=== PATIENT | female | born 1950 | race Caucasian/White ===

== ENCOUNTER → 2016-10-28 | Outpatient (CLI) | payer MEDICARE, OTHER ==
--- NOTE | 2016-10-28 17:32 | REPMRS ---
Patient History The patient states she has not had a clinical breast exam in over a year. Patient is postmenopausal. No known family history of cancer. Patient has lost 50 pounds since last mammo. Digital Mammo Screening Bilat: October 28, 2016 - Exam #: [id number] Bilateral CC and MLO view(s) were taken. Technologist: Kathy Heath Technologist Prior study comparison: July 09, 2015, bilateral digital mammo screening bilat performed at [facility]. April 21, 2014, bilateral digital mammo screening bilat performed at [facility]. April 01, 2013, bilateral digital mammo screening bilat performed at [facility]. FINDINGS: There are scattered fibroglandular densities. There has been no change in the appearance of the mammogram from the prior studies. There is a mild amount of scattered fibroglandular density which is fairly symmetric. There is no interval development of dominant mass, architectural distortion, or clustered microcalcification suggestive of malignancy. ASSESSMENT: BI-RADS/ACR category 1 mammogram. Negative. Recommendation Routine screening mammogram in 1 year (for women over age 40). This mammogram was interpreted with the aid of an FDA-approved computer-aided dectection system. Electronically Signed By: Santos Gonzalez MD 10/28/16 [id number]
== END ==
LOC: M RAD 12:09
PROVIDERS: ATTEND Physician Assistant Medical
DX: Z12.31 Encounter for screening mammogram for malignant neoplasm of breast (principal)

== ENCOUNTER 2016-11-09 14:02 | Emergency (ER) | payer MEDICARE, OTHER ==
[~2016-11-09] VITALS: Ht 157.5 cm; Wt 85.3 kg
[2016-11-09] MEDS ORDERED: ELIQ5TAB PO (14:14)
[2016-11-09] MEDS ORDERED: VITATAB11 PO (14:14)
[2016-11-09] MEDS ORDERED: AMLO2.5T PO (14:14)
[2016-11-09] MEDS ORDERED: LIPI20TA PO (14:14)
[2016-11-09] MEDS ORDERED: MICA40TA PO (14:14)
[2016-11-09] MEDS ORDERED: CALC500T49 PO (14:14)
[2016-11-09] MEDS ORDERED: CHLO125TA PO (14:14)
[2016-11-09] MEDS ORDERED: BIOT2500 PO (14:14)
[2016-11-09] MEDS ORDERED: FISH1000 PO (14:14)
--- NOTE | 2016-11-09 15:29 | REP ---
Duplex extremity venous ultrasound: Right lower extremity. History: Knee pain and extends up the hamstrings and down the posterior calf. Findings: The deep veins are anechoic and fully compressible from the groin to the popliteal fossa in the right lower extremity. Color flow imaging is homogeneous. Spectral Doppler interrogation demonstrates intact respiratory variation in flow and normal manual augmentation of flow. There is no evidence of deep vein thrombosis. Incidental note is made of a complex bilobed Salas's cyst. These cystic compartments in the posterior popliteal fossa measures follows: 3.4 x 2.5 x 1 points 1 cm and 2.4 x 1.3 x 1.2 cm. Impression: Negative right lower extremity duplex venous ultrasound. No evidence of deep vein thrombosis. Salas's cyst. Signed by Kin Gonzalez MD 11/09/2016 03:21 P
[2016-11-09] MEDS ORDERED: ACET-645 PO (15:44)
[2016-11-09 15:58] VITALS: BP 136/67
== END 2016-11-09 15:57 | disposition home or self-care (01) ==
LOC: M ED 14:43
DX: M71.21 Synovial cyst of popliteal space [Baker], right knee (principal)

== ENCOUNTER 2017-03-28 16:02 | Emergency (ER) | payer MEDICARE, OTHER ==
[~2017-03-28] VITALS: Ht 157.5 cm; Wt 86.3 kg
[~2017-03-28 16:02] MED LIST: ACET-645 PO; AMLO2.5T PO; BIOT2500 PO; CALC500T49 PO; CHLO125TA PO; ELIQ5TAB PO; FISH1000 PO; LIPI20TA PO; MICA40TA PO; VITATAB11 PO
[2017-03-28] MEDS ORDERED: traMADol 50 MG TAB PO ONE (18:45)
--- NOTE | 2017-03-28 19:44 | REP ---
Clinical: Pain. Technique: AP, lateral, bilateral oblique and sunrise views of the right knee. Findings: Early advanced tricompartmental osteoarthritic degenerative changes are appreciated. Suprapatellar effusion identified. Prepatellar swelling. Impression: Swelling with effusion and advanced tricompartmental degenerative changes. No obvious acute fracture dislocation. If necessary consider CT of the knee for evaluation of subtle fracture. Signed by Kory Carter MD 03/28/2017 07:43 P
[2017-03-28] MEDS ORDERED: NORCOTAB PO (19:51)
[2017-03-28] MEDS ORDERED: NORCO 5/325MG TABLET (BULK FOR ED) PO ONE (20:00)
[2017-03-28 20:04] VITALS: BP 143/91
[2017-05-24] MEDS ORDERED: LIDO5TD TOP (12:00)
[2017-05-24] MEDS ORDERED: OYST500T17 PO (12:00)
[2017-05-24] MEDS ORDERED: DICL1GEL3 TOP (12:00)
[2017-05-24] MEDS ORDERED: CHLO25TA PO (12:00)
[2017-05-24] MEDS ORDERED: VITA1CAP40 PO (12:00)
[2017-05-24] MEDS ORDERED: ATOR40TA75 PO (12:00)
[2017-05-29] MEDS ORDERED: ATEN25TA PO (10:32)
== END 2017-03-28 20:09 | disposition home or self-care (01) ==
LOC: M ED 16:02
DX: M17.11 Unilateral primary osteoarthritis, right knee (principal)

== ENCOUNTER 2017-04-04 23:03 | Emergency (ER) | payer MEDICARE, OTHER ==
[~2017-04-04] VITALS: Ht 157.5 cm; Wt 83.6 kg
[~2017-04-04 23:03] MED LIST changes: +NORCOTAB PO
[2017-04-04 23:37] LABS: BASO % 0.4 % (0.0-1.0); EOS # 0.2 K/mm3 (0.0-0.50); EOS % 2.6 % (0.0-3.0); LARGE UNSTAINED CELL # 0.2 K/mm3 (0.0-0.4); LARGE UNSTAINED CELL % 2.5 % (0.0-4.0); LYMPH # 1.6 K/mm3 (1.5-4.5); LYMPH % 16.7 % (24.0-44.0); MEAN CORPUSCULAR HEMOGLOBIN 31.4 pg (27.0-33.0); MEAN CORPUSCULAR HGB CONC 36.5 g/dl (32.0-36.5); MEAN CORPUSCULAR VOLUME 86.3 fl (80.0-96.0); MONO # 0.7 K/mm3 (0.0-0.8); MONO % 7.1 % (0.0-5.0); NEUTROPHILS # 6.7 K/mm3 (1.8-7.7); NEUTROPHILS % 70.6 % (36.0-66.0); PLATELET COUNT, AUTOMATED 285 k/mm3 (150-450); WHITE BLOOD COUNT 9.4 K/mm3 (4.0-10.0)
[2017-04-04 23:44] LABS: INR 1.46
[2017-04-04] MEDS ORDERED: ASPIRIN 81 MG CHEW TABLET PO ONE (23:45)
[2017-04-05 00:09] LABS: ALBUMIN 3.4 GM/DL (3.2-5.2); ALBUMIN/GLOBULIN RATIO 0.83 (1.00-1.93); ALKALINE PHOSPHATASE 117 U/L (45-117); ALT/SGPT 30 U/L (12-78); ANION GAP 6 MEQ/L (8-16); AST/SGOT 29 U/L (15-37); BILIRUBIN,DIRECT 0.3 MG/DL (0.0-0.2); BILIRUBIN,TOTAL 1.1 MG/DL (0.2-1.0); BLOOD UREA NITROGEN 20 MG/DL (7-18); CALCIUM LEVEL 9.7 MG/DL (8.8-10.2); CARBON DIOXIDE LEVEL 32 MEQ/L (21-32); CHLORIDE LEVEL 92 MEQ/L (98-107); CREATININE FOR GFR 1.09 MG/DL (0.55-1.02); GLOMERULAR FILTRATION RATE 53.3 (>45); GLUCOSE, FASTING 100 MG/DL (80-110); POTASSIUM SERUM 4.4 MEQ/L (3.5-5.1); SODIUM LEVEL 130 MEQ/L (136-145); TOTAL PROTEIN 7.5 GM/DL (6.4-8.2)
[2017-04-05] MEDS ORDERED: ISOVUE-370 76% 100ML VIAL (Q9967) As Ordered ONE (00:29)
[2017-04-05] MEDS ORDERED: NS 500 ML IV ONE (00:30)
[2017-04-05] MEDS ORDERED: GI COCKTAIL 50ML BTL(HYOSCYAMINE/MAALOX/LIDOCAINE VISCOUS)(1:3:1) PO ONE (00:30)
--- NOTE | 2017-04-05 01:00 | REPUSA ---
CLINICAL HISTORY: Chest pain, exclude PE. TECHNIQUE: Multiple incremental axial, coronal and oblique images are obtained from the thoracic inle t to the upper abdomen. Intravenous contrast material was administered as per pulmonary embolism prot ocol. COMMENTS: Bilateral basilar atelectatic pulmonary changes. There is excellent opacification of pulmonary arterial system without evidence for pulmonary embolism . Aorta is of normal caliber without evidence for dissection or aneurysm. There is no evidence of pleural or parenchymal mass. There are no pleural effusions. There is no evid ence of hilar or mediastinal lymphadenopathy. The heart and great vessels are within normal limits. Images of the upper abdomen demonstrate no evidence of adrenal mass. The bony structures are free of lytic or blastic lesions. IMPRESSION: No evidence for pulmonary embolism. Bilateral basilar atelectatic pulmonary changes. Thank you for your kind referral of this patient.
[2017-04-05 06:23] VITALS: BP 139/67
--- NOTE | 2017-04-05 07:38 | REP ---
Clinical: Chest pain . Comparison: None . Technique: PA and lateral. Findings: The mediastinum and cardiac silhouette are normal. The lung hoyt are clear and without acute consolidation, effusion, or pneumothorax. The skeletal structures are intact and normal. Impression: 1. No acute cardiopulmonary process. Signed by Kory Carter MD 04/05/2017 07:29 A
--- NOTE | 2017-04-06 07:14 | ECGEPIP ---
Stationary ECG Study [facility] - ED Test Date: 2017-04-04 Pat Name: DEEPAK QIU Department: Room: - Gender: F Beverage Steward: wagner : 1950 Requested By: SABAS Callahan Order Number: [id number] Reading MD: Valarie Dominguez Measurements Intervals [place] Rate: 77 P: WI: 0 QRS: 81 QRSD: 84 T: 61 QT: 397 QTc: 450 Interpretive Statements ATRIAL FIBRILLATION ABNORMAL RHYTHM ECG LOW VOLTAGE LIMB NSTTW ABNORMALITY NO PRIOR FOR COMPARISON Electronically Signed On 04-06-2017 7:13:40 EDT by Valarie Dominguez
--- NOTE | 2017-04-06 07:38 | ECGEPIP ---
Stationary ECG Study [facility] - ED Test Date: 2017-04-05 Pat Name: DEEPAK QIU Department: Room: - Gender: F Photographic Technician: : 1950 Requested By: SABAS Callahan Order Number: [id number] Reading MD: Valarie Dominguez Measurements Intervals [place] Rate: 70 P: [place]: 0 QRS: 63 QRSD: 97 T: 48 QT: 440 QTc: 476 Interpretive Statements ATRIAL FIBRILLATION LOW QRS VOLTAGE IN EXTREMITY LEADS ABNORMAL RHYTHM ECG NSTTW ABNORMALITY SIMILAR 04/04/17 23:23 Electronically Signed On 04-06-2017 7:38:32 EDT by Valarie Dominguez
[2017-05-24] MEDS ORDERED: ATOR40TA75 PO (12:00)
[2017-05-24] MEDS ORDERED: LIDO5TD TOP (12:00)
[2017-05-24] MEDS ORDERED: OYST500T17 PO (12:00)
[2017-05-24] MEDS ORDERED: VITA1CAP40 PO (12:00)
[2017-05-24] MEDS ORDERED: CHLO25TA PO (12:00)
[2017-05-24] MEDS ORDERED: DICL1GEL3 TOP (12:00)
[2017-05-29] MEDS ORDERED: ATEN25TA PO (10:32)
== END 2017-04-05 06:24 | disposition home or self-care (01) ==
LOC: M ED 23:03
DX: R07.9 Chest pain, unspecified (principal); I48.91 Unspecified atrial fibrillation; I10 Essential (primary) hypertension; E78.4 Other hyperlipidemia
CPT/HCPCS: 36415; 71020; 71275; 80048; 80076; 82550; 82553; 83690; 84484; 85025; 85610; 85730; 93005; 93041; 94760; 96360; 96361; 99285; Q9967

== ENCOUNTER 2017-06-20 11:34 | Emergency (ER) | payer MEDICARE, OTHER ==
[~2017-06-20] VITALS: Ht 157.5 cm; Wt 88.6 kg
[~2017-06-20 11:34] MED LIST changes: +ATEN25TA PO; +ATOR40TA75 PO; +CHLO25TA PO; +DICL1GEL3 TOP; +LIDO5TD TOP; +OYST500T17 PO; +VITA1CAP40 PO
[2017-06-20] MEDS ORDERED: SPIR25TA2 (11:42)
[2017-06-20] MEDS ORDERED: CHLO125TA (11:42)
[2017-06-20] MEDS ORDERED: TYLE325T5 PO (11:42)
[2017-06-20] MEDS ORDERED: NORCO, ANEXSIA 5/325MG TABLET (HYDROcodone/ACETAMINOPHEN) PO ONE (14:30)
--- NOTE | 2017-06-20 15:08 | REP ---
Duplex extremity venous ultrasound: Right lower extremity. History: Right leg and knee pain. Recent immobility. Question DVT Findings: The deep veins are anechoic and fully compressible from the groin to the popliteal fossa in the at right lower extremity. Color flow imaging is homogeneous. Spectral Doppler interrogation demonstrates intact respiratory variation in flow and normal manual augmentation of flow. There is no evidence of deep vein thrombosis. There is a 5.0 x 3.5 x 3.2 cm complex cystic structure in the medial posterior aspect of the knee consistent with a Salas's cyst. A Salas's cyst was observed on the previous study from November 09, 2016. Impression: Negative right lower extremity duplex venous ultrasound. No evidence of deep vein thrombosis. Right-sided Salas's cyst again seen. Signed by Kin Gonzalez MD 06/20/2017 03:00 P
[2017-06-20 15:11] LABS: BASO # 0.1 10^3/uL (0.0-0.2); BASO % 0.4 % (0.0-1.0); EOS # 0.1 10^3/uL (0.0-0.50); EOS % 0.5 % (0.0-3.0); IMMATURE GRANULOCYTE % 0.4 % (0-0); LYMPH # 1.2 10^3/uL (1.5-4.5); LYMPH % 9.4 % (24.0-44.0); MEAN CORPUSCULAR HEMOGLOBIN 30.6 pg (27.0-33.0); MEAN CORPUSCULAR HGB CONC 34.3 g/dl (32.0-36.5); MEAN CORPUSCULAR VOLUME 89.2 fl (80.0-96.0); MONO # 0.8 10^3/uL (0.0-0.8); MONO % 6.8 % (0.0-5.0); NEUTROPHILS # 10.1 10^3/uL (1.8-7.7); NEUTROPHILS % 82.5 % (36.0-66.0); PLATELET COUNT, AUTOMATED 258 10^3/uL (150-450); RED CELL DISTRIBUTION WIDTH 12.8 % (11.5-14.5); WHITE BLOOD COUNT 12.2 10^3/uL (4.0-10.0)
--- NOTE | 2017-06-20 15:16 | REP ---
Clinical: Pain. Technique: AP, lateral, bilateral oblique and sunrise views of the right knee. Comparison: 03/28/2017. Findings: Advanced tricompartmental osteoarthritic degenerative changes are again appreciated and essentially unchanged. Findings include osteophytosis, subchondral heterogeneity, joint space narrowing and swelling. Lateral view demonstrates large suprapatellar effusion. Impression: Advanced tricompartmental osteoarthritic degenerative changes including effusion. Signed by Kory Carter MD 06/20/2017 03:07 P
[2017-06-20 15:38] LABS: ERYTHROCYTE SEDIMENTATION RATE 20 mm/hr (0-30)
[2017-06-20 15:43] LABS: ANION GAP 11 MEQ/L (8-16); BLOOD UREA NITROGEN 13 MG/DL (7-18); CALCIUM LEVEL 10.2 MG/DL (8.8-10.2); CARBON DIOXIDE LEVEL 28 MEQ/L (21-32); CHLORIDE LEVEL 97 MEQ/L (98-107); CREATININE FOR GFR 0.84 MG/DL (0.55-1.02); GLOMERULAR FILTRATION RATE > 60.0 (>45); GLUCOSE, FASTING 93 MG/DL (80-110); POTASSIUM SERUM 3.5 MEQ/L (3.5-5.1); SODIUM LEVEL 136 MEQ/L (136-145); URIC ACID 6.2 MG/DL (2.6-6.0)
[2017-06-20 16:09] VITALS: BP 159/87
[2017-06-20] MEDS ORDERED: PRED20TA PO (16:33)
[2017-06-20] MEDS ORDERED: PERC5TAB12 PO (16:33)
[2017-06-20] MEDS ORDERED: NS 1,000 ML IV ONE (17:00)
== END 2017-06-20 17:06 | disposition home or self-care (01) ==
LOC: M ED 11:34
DX: M17.11 Unilateral primary osteoarthritis, right knee (principal); E79.0 Hyperuricemia without signs of inflammatory arthritis and tophaceous disease; M25.461 Effusion, right knee; I48.91 Unspecified atrial fibrillation; I44.2 Atrioventricular block, complete; M79.661 Pain in right lower leg

== ENCOUNTER → 2018-03-05 | Outpatient (CLI) | payer MEDICARE, OTHER | LOC: M WHC 10:05 | DX: M85.80 Other specified disorders of bone density and structure, unspecified site (principal) ==

== ENCOUNTER → 2018-03-05 | Outpatient (CLI) | payer MEDICARE, OTHER | LOC: M RAD 08:57 | DX: Z12.31 Encounter for screening mammogram for malignant neoplasm of breast (principal); M85.80 Other specified disorders of bone density and structure, unspecified site; Z78.0 Asymptomatic menopausal state; Z92.89 Personal history of other medical treatment; Z95.0 Presence of cardiac pacemaker | CPT/HCPCS: 77067 ==

== ENCOUNTER → 2019-05-30 | Outpatient (CLI) | payer MEDICARE, OTHER ==
[~2019-05-30] MED LIST changes: -AMLO2.5T PO; +AMLO2.5T3 PO; +CHLO125TA; +HYDR-3715 PO; -NORCOTAB PO; +PERC5TAB12 PO; +PRED20TA PO; +SPIR-10; +TYLE325T5 PO; -VITA1CAP40 PO; +VITA50005 PO
--- NOTE | 2019-05-30 09:27 | REPMRS ---
Patient History The patient states she had a clinical breast exam in 2018. No known family history of cancer. Digital Mammo Screening Bilat: May 30, 2019 - Exam #: [id number] Bilateral CC and MLO view(s) were taken. Technologist: Maria Laird, Technologist Prior study comparison: March 05, 2018, bilateral digital mammo screening bilat performed at [facility]. October 28, 2016, bilateral digital mammo screening bilat performed at [facility]. July 09, 2015, bilateral digital mammo screening bilat performed at [facility]. FINDINGS: There are scattered fibroglandular densities. A pacemaker power plant is again visualized on the left. There has been no change in the appearance of the mammogram from the prior studies. There is a mild amount of scattered fibroglandular density which is fairly symmetric. There is no interval development of dominant mass, architectural distortion, or grouped microcalcification suggestive of malignancy. 3-D tomosynthesis shows no additional findings. Assessment: BI-RADS/ACR category 2 mammogram. Benign Findings. Recommendation Routine screening mammogram of both breasts in 1 year (for women over age 40). This patient's Lifetime Breast Cancer Risk is estimated at 4.2 %. This mammogram was interpreted with the aid of an FDA-approved computer-aided dectection system. Electronically Signed By: Santos Gonzalez MD 05/30/19 [id number]
== END ==
LOC: M RAD 07:23
PROVIDERS: ATTEND Emergency Medicine
DX: Z12.31 Encounter for screening mammogram for malignant neoplasm of breast (principal); Z95.0 Presence of cardiac pacemaker

== ENCOUNTER → 2020-05-08 | Outpatient (CLI) | payer MEDICARE, OTHER ==
--- NOTE | 2020-05-15 15:13 | DEXA ---
AP SPINE L1 - L4 1.506 2.5 4.2 LT FEMUR TOTAL 1.005 0.0 1.5 LT NECK 0.973 -0.5 1.3 RT FEMUR TOTAL 0.935 -0.6 0.9 RT NECK 0.873 -1.2 0.5 TOTAL BODY TOTAL OTHER COMMENTS: Normal bone densitometry of the spine. Normal bone densitometry of the left hip. There is low bone density of the right hip. The density of the spine is increased 5.0% since 03/05/2018. The density of the left hip has decreased 1.1% since 03/05/2018. The density of the right hip has increased 5.6% since 03/05/2018. The increased density of the spine does represent a significant change. The decreased density of the left hip does not represent a significant change. The increased density of the right hip does represent a significant change. FOLLOW-UP: Recommendation for the next bone density exam: 2 years. GENEVIEVE
== END ==
LOC: M WHC 09:13
PROVIDERS: ATTEND Nurse Practitioner Primary Care
DX: Z13.828 Encounter for screening for other musculoskeletal disorder (principal); M85.851 Other specified disorders of bone density and structure, right thigh

== ENCOUNTER → 2020-06-03 | Outpatient (CLI) | payer MEDICARE, OTHER ==
--- NOTE | 2020-06-03 11:31 | REPMRS ---
Patient History The patient states she has not had a clinical breast exam in over a year. Patient is postmenopausal. No known family history of cancer. Benign excisional biopsy of the right breast. No Hormone Replacement Therapy Digital Woman Screen Mammo: June 03, 2020 - Exam #: [id number] Bilateral CC and MLO view(s) were taken. Technologist: Nhung Paniagua, Technologist Prior study comparison: May 30, 2019, bilateral digital mammo screening bilat, performed at [facility]. March 05, 2018, bilateral digital mammo screening bilat, performed at [facility]. October 28, 2016, bilateral digital mammo screening bilat, performed at [facility]. FINDINGS: There are scattered fibroglandular densities. The Volpara volumetric breast density category is:B. There is a needle biopsy marker clip in the right breast. There is a pacemaker power plant projecting over the left axilla on the MLO view. There has been no change in the appearance of the mammogram from the prior studies. There is a mild amount of scattered fibroglandular density which is fairly symmetric. There is no interval development of dominant mass, architectural distortion, or grouped microcalcification suggestive of malignancy. 3-D tomosynthesis shows no additional findings. Assessment: BI-RADS/ACR category 2 mammogram. Benign Findings. Recommendation Routine screening mammogram of both breasts in 1 year (for women over age 40). This patient's Lifetime Breast Cancer Risk is estimated at 4.0 %. This mammogram was interpreted with the aid of an FDA-approved computer-aided dectection system. Electronically Signed By: Santos Gonzalez MD 06/03/20 [id number]
== END ==
LOC: M WHC 08:49
PROVIDERS: ATTEND Nurse Practitioner Primary Care
DX: Z12.31 Encounter for screening mammogram for malignant neoplasm of breast (principal); Z97.8 Presence of other specified devices

== ENCOUNTER → 2020-06-22 | Outpatient (CLI) | payer MEDICARE, OTHER ==
--- NOTE | 2020-06-22 10:01 | REPVR ---
PROCEDURE INFORMATION: Exam: CT Head Without Contrast Exam date and time: 06/22/2020 9:49 AM Age: 69 years old Clinical indication: Other: Mild cognitive impairment; Additional info: Mild cognitive impairment, so stated TECHNIQUE: Imaging protocol: Computed tomography of the head without contrast. Radiation optimization: All CT scans at this facility use at least one of these dose optimization techniques: automated exposure control; mA and/or kV adjustment per patient size (includes targeted exams where dose is matched to clinical indication); or iterative reconstruction. COMPARISON: CT Head without contrast 05/24/2017 10:31 AM FINDINGS: Brain: Mild generalized parenchymal atrophy and evidence of microvascular ischemic disease involving the periventricular and subcortical white matter bilaterally. Cerebral ventricles: No ventriculomegaly. Bones/joints: Unremarkable. No acute fracture. Paranasal sinuses: Visualized sinuses are unremarkable. No fluid levels. Mastoid air cells: Visualized mastoid air cells are well aerated. Soft tissues: Unremarkable. IMPRESSION: No acute intracranial pathology. Electronically signed by: Jairo Patel On 06/22/2020 10:01:30 AM
== END ==
LOC: M RAD 09:37
PROVIDERS: ATTEND Psychiatry & Neurology Neurology
DX: G31.84 Mild cognitive impairment of uncertain or unknown etiology (principal)

== ENCOUNTER → 2021-08-23 | Outpatient (CLI) | payer MEDICARE, OTHER ==
[~2021-08-23] MED LIST changes: +CALCCAP4 PO; +ESTR625TA PO; +ESTR62CR PV; +GARL500C2 PO; +LOSA50TA28 PO; +ROSU20TA5 PO; +SPIR-10 PO; +VITA500C19 PO
== END ==
LOC: M LABSMTC 10:00
PROVIDERS: ATTEND Anesthesiology
DX: Z01.812 Encounter for preprocedural laboratory examination (principal); Z20.822 Contact with and (suspected) exposure to COVID-19

== ENCOUNTER → 2021-09-15 | Outpatient (CLI) | payer MEDICARE, OTHER | LOC: M WHC 13:47 | PROVIDERS: ATTEND Emergency Medicine | DX: Z12.31 Encounter for screening mammogram for malignant neoplasm of breast (principal); Z79.890 Hormone replacement therapy ==

== ENCOUNTER → 2022-01-27 | Outpatient (CLI) | payer MEDICARE, OTHER ==
[~2022-01-27] MED LIST changes: +ALBU2.5V10 INH; +ALBU8.5H INH; +MAPA500C PO; +MULTTAB61 PO
== END ==
LOC: M LABSMTC 09:40
PROVIDERS: ATTEND Anesthesiology
DX: Z01.812 Encounter for preprocedural laboratory examination (principal); Z11.52 Encounter for screening for COVID-19

== ENCOUNTER 2022-01-31 09:19 | Day surgery (SDC) | payer MEDICARE, OTHER ==
[~2022-01-31] VITALS: Ht 157.5 cm; Wt 80.3 kg
[~2022-01-31 09:19] MED LIST changes: +NS 1,000 ML IV ONE
[2022-01-31] MEDS ORDERED: LIDOCAINE 2% INJ 100 MG/5 ML SYRINGE As Ordered ONE (10:45)
[2022-01-31] MEDS ORDERED: propofoL 500 MG/50 ML VIAL As Ordered ONE (10:45)
[2022-01-31 12:09] VITALS: BP 117/70
== END 2022-01-31 12:20 | disposition home or self-care (01) ==
LOC: M OPP 09:19
PROVIDERS: ATTEND Internal Medicine Gastroenterology
DX: Z12.11 Encounter for screening for malignant neoplasm of colon (principal); Z86.010 Personal history of colon polyps; K63.5 Polyp of colon; D12.5 Benign neoplasm of sigmoid colon; K57.30 Diverticulosis of large intestine without perforation or abscess without bleeding; Z79.01 Long term (current) use of anticoagulants; Z79.02 Long term (current) use of antithrombotics/antiplatelets; Z79.52 Long term (current) use of systemic steroids; Z79.810 Long term (current) use of selective estrogen receptor modulators (SERMs); Z79.899 Other long term (current) drug therapy; Z91.040 Latex allergy status

== ENCOUNTER → 2023-07-12 | Outpatient (REF) | payer MEDICARE, OTHER ==
[~2023-07-12] MED LIST changes: +DICL100G10 TOP; -DICL1GEL3 TOP; -NS 1,000 ML IV ONE; -ROSU20TA5 PO; +ROSU20TA61 PO
[2023-07-12 17:56] LABS: ALBUMIN 4.4 G/DL (3.2-5.2); BILIRUBIN,DIRECT 0.3 MG/DL (<0.4); BILIRUBIN,TOTAL 0.8 MG/DL (0.3-1.2); TOTAL PROTEIN 7.1 G/DL (5.7-8.2)
== END ==
LOC: M LABWUC 16:31
PROVIDERS: ATTEND Podiatrist
DX: Z79.899 Other long term (current) drug therapy (principal)

== ENCOUNTER → 2023-08-31 | Outpatient (REF) | payer MEDICARE, OTHER ==
[2023-08-31 13:21] LABS: BILIRUBIN,DIRECT 0.3 MG/DL (<0.4); BILIRUBIN,TOTAL 0.8 MG/DL (0.3-1.2); TOTAL PROTEIN 6.7 G/DL (5.7-8.2)
== END ==
LOC: M LABWUC 11:11
PROVIDERS: ATTEND Podiatrist
DX: Z79.899 Other long term (current) drug therapy (principal)

== ENCOUNTER → 2023-09-11 | Outpatient (CLI) | payer MEDICARE, OTHER | LOC: M PLAIMG 12:49 | PROVIDERS: ATTEND Psychiatry & Neurology Neurology | DX: G31.84 Mild cognitive impairment of uncertain or unknown etiology (principal) ==

== ENCOUNTER → 2023-12-07 | Outpatient (CLI) | payer MEDICARE, OTHER ==
[~2023-12-07] MED LIST changes: -GARL500C2 PO; +GARL500C6 PO
[2023-12-07 14:20] LABS: HEMATOCRIT 41.5 % (36.0-47.0); HEMOGLOBIN 13.9 g/dl (12.0-15.5); MEAN CORPUSCULAR HEMOGLOBIN 31.4 pg (27.0-33.0); MEAN CORPUSCULAR HGB CONC 33.5 g/dl (32.0-36.5); MEAN CORPUSCULAR VOLUME 93.7 fl (80.0-96.0); PLATELET COUNT, AUTOMATED 258 10^3/uL (150-450); RED BLOOD COUNT 4.43 10^6/uL (4.00-5.40); WHITE BLOOD COUNT 9.5 10^3/uL (4.0-10.0)
[2023-12-07 14:30] LABS: BLOOD UREA NITROGEN 15 MG/DL (9-23); CARBON DIOXIDE LEVEL 30 MMOL/L (20-31); CHLORIDE LEVEL 99 MMOL/L (98-107); CREATININE FOR GFR 0.94 MG/DL (0.55-1.30); GLOMERULAR FILTRATION RATE > 60.0 (>39); GLUCOSE, FASTING 92 MG/DL (74-106); MAGNESIUM LEVEL 2.1 MG/DL (1.8-2.4); POTASSIUM SERUM 4.5 MMOL/L (3.5-5.1); SODIUM LEVEL 135 MMOL/L (136-145)
== END ==
LOC: M PLALAB 10:55
PROVIDERS: ATTEND Physician Assistant
DX: I48.21 Permanent atrial fibrillation (principal); I10 Essential (primary) hypertension

== ENCOUNTER 2024-02-04 15:02 | Inpatient (IN) | payer MEDICARE, OTHER ==
[~2024-02-04] VITALS: Ht 157.5 cm; Wt 76.0 kg
[2024-02-04 16:55] LABS: BASO % 0.3 % (0.0-1.0); EOS # 0.1 10^3/uL (0.0-0.5); EOS % 0.7 % (0.0-3.0); HEMOGLOBIN 13.6 g/dl (12.0-15.5); LYMPH % 8.6 % (24.0-44.0); MEAN CORPUSCULAR HGB CONC 34.9 g/dl (32.0-36.5); MEAN CORPUSCULAR VOLUME 91.8 fl (80.0-96.0); MONO # 0.9 10^3/uL (0.0-0.8); MONO % 7.3 % (2.0-8.0); NEUTROPHILS % 82.7 % (36.0-66.0); PLATELET COUNT, AUTOMATED 235 10^3/uL (150-450); RED BLOOD COUNT 4.25 10^6/uL (4.00-5.40); WHITE BLOOD COUNT 12.1 10^3/uL (4.0-10.0)
[2024-02-04 17:05] LABS: INR 1.4; PARTIAL THROMBOPLASTIN TIME 23.8 SECONDS (24.8-34.2); PROTHROMBIN TIME 16.7 SECONDS (12.5-14.5)
[2024-02-04 17:15] LABS: LIPASE 27 U/L (12-53)
[2024-02-04 17:17] LABS: ALBUMIN 3.8 G/DL (3.2-5.2); ALKALINE PHOSPHATASE 67 U/L (46-116); ALT/SGPT 20 U/L (7.0-40); AST/SGOT 39 U/L (<34); BILIRUBIN,DIRECT 0.3 MG/DL (<0.4); BILIRUBIN,TOTAL 1.1 MG/DL (0.3-1.2); BLOOD UREA NITROGEN 13 MG/DL (9-23); CALCIUM LEVEL 9.5 MG/DL (8.3-10.6); CARBON DIOXIDE LEVEL 26 MMOL/L (20-31); CHLORIDE LEVEL 101 MMOL/L (98-107); GLOMERULAR FILTRATION RATE > 60.0 (>39); GLUCOSE, FASTING 93 MG/DL (74-106); POTASSIUM SERUM 4.4 MMOL/L (3.5-5.1); SODIUM LEVEL 133 MMOL/L (136-145); TOTAL PROTEIN 6.2 G/DL (5.7-8.2)
[2024-02-04] MEDS ORDERED: ISOVUE-370 76% 100ML VIAL As Ordered ONE (17:27)
[2024-02-04] MEDS: PANTOPRAZOLE 40MG VIAL IV ONE (18:08)
[2024-02-04] MEDS: CALCIUM/VITAMIN D 500 MG TAB PO SCH (21:00)
[2024-02-04] MEDS ORDERED: HOME MED LIST COMPLETE! XX SCH (21:20)
[2024-02-04 22:17] LABS: PROCALCITONIN <0.04 ng/ml
[2024-02-04] MEDS: LOSARTAN 25 MG TAB PO ONE (23:43)
[2024-02-05 06:06] LABS: BASO % 0.3 % (0.0-1.0); EOS # 0.1 10^3/uL (0.0-0.5); EOS % 0.9 % (0.0-3.0); HEMOGLOBIN 13.3 g/dl (12.0-15.5); LYMPH # 1.2 10^3/uL (1.5-5.0); LYMPH % 9.9 % (24.0-44.0); MEAN CORPUSCULAR HEMOGLOBIN 31.3 pg (27.0-33.0); MEAN CORPUSCULAR HGB CONC 34.1 g/dl (32.0-36.5); MEAN CORPUSCULAR VOLUME 91.8 fl (80.0-96.0); MONO # 0.9 10^3/uL (0.0-0.8); NEUTROPHILS # 9.5 10^3/uL (1.5-8.5); NEUTROPHILS % 80.5 % (36.0-66.0); PLATELET COUNT, AUTOMATED 200 10^3/uL (150-450); RED BLOOD COUNT 4.25 10^6/uL (4.00-5.40); WHITE BLOOD COUNT 11.8 10^3/uL (4.0-10.0)
[2024-02-05 06:37] LABS: ALBUMIN 3.6 G/DL (3.2-5.2); ALKALINE PHOSPHATASE 68 U/L (46-116); ALT/SGPT 15 U/L (7.0-40); AST/SGOT 16 U/L (<34); BILIRUBIN,TOTAL 1.9 MG/DL (0.3-1.2); BLOOD UREA NITROGEN 9 MG/DL (9-23); CALCIUM LEVEL 9.3 MG/DL (8.3-10.6); CARBON DIOXIDE LEVEL 28 MMOL/L (20-31); CHLORIDE LEVEL 103 MMOL/L (98-107); CREATININE FOR GFR 0.84 MG/DL (0.55-1.30); GLOMERULAR FILTRATION RATE > 60.0 (>39); GLUCOSE, FASTING 92 MG/DL (74-106); POTASSIUM SERUM 4.4 MMOL/L (3.5-5.1); SODIUM LEVEL 136 MMOL/L (136-145)
[2024-02-05] MEDS ORDERED: SPIRONOLACTONE 12.5MG PER 1/2 TABLET PO SCH (09:00)
[2024-02-05] MEDS: PANTOPRAZOLE 40MG VIAL IV SCH (10:58)
[2024-02-05] MEDS: LIDOCAINE 5% (LIDODERM) PATCH TOP SCH (11:06)
[2024-02-05] MEDS ORDERED: LOSARTAN 25 MG TAB PO SCH (13:00)
[2024-02-05 16:04] VITALS: BP_SYST 140; BP_SYST 182; BP_DIAS 88; TEMP 98.4; O2SAT 97
[2024-02-05] MEDS: GOLYTELY SOLN 4000 ML BTL PO ONE (18:09)
[2024-02-05 19:00] VITALS: BP 124/81; TEMP 96.9; O2SAT 98
[2024-02-05 21:27] VITALS: BP 122/62
[2024-02-05] MEDS: LOSARTAN 25 MG TAB PO SCH (21:27)
[2024-02-05 23:28] VITALS: BP 121/70; TEMP 97.1; O2SAT 99
[2024-02-06 04:00] VITALS: BP 115/57; TEMP 97.1; O2SAT 96
[2024-02-06] MEDS: GOLYTELY SOLN 4000 ML BTL PO ONE (05:07)
[2024-02-06 06:26] LABS: BASO # 0.1 10^3/uL (0.0-0.2); BASO % 0.4 % (0.0-1.0); EOS # 0.2 10^3/uL (0.0-0.5); EOS % 1.9 % (0.0-3.0); HEMATOCRIT 44.7 % (36.0-47.0); HEMOGLOBIN 14.7 g/dl (12.0-15.5); LYMPH # 1.4 10^3/uL (1.5-5.0); LYMPH % 11.6 % (24.0-44.0); MEAN CORPUSCULAR HEMOGLOBIN 30.8 pg (27.0-33.0); MEAN CORPUSCULAR HGB CONC 32.9 g/dl (32.0-36.5); MEAN CORPUSCULAR VOLUME 93.5 fl (80.0-96.0); MONO # 0.6 10^3/uL (0.0-0.8); MONO % 4.7 % (2.0-8.0); NEUTROPHILS # 9.7 10^3/uL (1.5-8.5); NEUTROPHILS % 80.9 % (36.0-66.0); PLATELET COUNT, AUTOMATED 241 10^3/uL (150-450); RED BLOOD COUNT 4.78 10^6/uL (4.00-5.40)
[2024-02-06 06:50] LABS: BLOOD UREA NITROGEN 7 MG/DL (9-23); CALCIUM LEVEL 10.4 MG/DL (8.3-10.6); CARBON DIOXIDE LEVEL 30 MMOL/L (20-31); CHLORIDE LEVEL 105 MMOL/L (98-107); CREATININE FOR GFR 0.89 MG/DL (0.55-1.30); GLOMERULAR FILTRATION RATE > 60.0 (>39); GLUCOSE, FASTING 155 MG/DL (74-106); POTASSIUM SERUM 4.4 MMOL/L (3.5-5.1); SODIUM LEVEL 143 MMOL/L (136-145)
[2024-02-06 08:00] VITALS: BP 120/59; TEMP 97.5; O2SAT 96
[2024-02-06] MEDS: ACETAMINOPHEN TAB 650MG DOSE (2X325MG) PO PRN (08:37)
[2024-02-06] MEDS ORDERED: LIDOCAINE 2% 100MG/5ML SDV (FOR ANES.) As Ordered ONE (11:34)
[2024-02-06] MEDS ORDERED: propofoL 200 MG/20 ML VIAL As Ordered ONE (11:34)
[2024-02-06] MEDS ORDERED: ONDANSETRON 4MG 2ML VIAL As Ordered ONE (11:34)
[2024-02-06] MEDS ORDERED: PHENYLephrine 500MCG 5ML (100MCG/ML) SYRINGE As Ordered ONE (12:00)
[2024-02-06 12:09] VITALS: TEMP 97.4
[2024-02-06 12:25] VITALS: BP 131/62; O2SAT 99
[2024-02-06] MEDS ORDERED: LIAL1.2T PO (13:09)
[2024-02-06] MEDS ORDERED: MIRA3350 PO (13:10)
== END 2024-02-06 14:10 | disposition home or self-care (01) | DRG 395 ==
LOC: M ED 15:02 → M ED INP 21:26 → M PCU 02-05 15:53
PROVIDERS: ADMIT Internal Medicine; ATTEND Internal Medicine
PROC: 0DJD8ZZ Inspection of Lower Intestinal Tract, Via Natural or Artificial Opening Endoscopic (ICD-10-PCS; principal; 2024-02-06 10:30)
DX: K55.9 Vascular disorder of intestine, unspecified (principal); I48.91 Unspecified atrial fibrillation; I10 Essential (primary) hypertension; I08.0 Rheumatic disorders of both mitral and aortic valves; M19.90 Unspecified osteoarthritis, unspecified site; E66.9 Obesity, unspecified; E78.5 Hyperlipidemia, unspecified; F41.9 Anxiety disorder, unspecified; G47.33 Obstructive sleep apnea (adult) (pediatric); M48.00 Spinal stenosis, site unspecified; F90.9 Attention-deficit hyperactivity disorder, unspecified type; Z79.899 Other long term (current) drug therapy; Z91.040 Latex allergy status; Z79.01 Long term (current) use of anticoagulants; Z88.8 Allergy status to other drugs, medicaments and biological substances; Z88.1 Allergy status to other antibiotic agents; Z66 Do not resuscitate

== ENCOUNTER → 2024-03-14 | Outpatient (CLI) | payer MEDICARE, OTHER ==
[~2024-03-14] MED LIST changes: +LIAL1.2T PO; +MIRA3350 PO
== END ==
LOC: M RAD 10:28
PROVIDERS: ATTEND Nurse Practitioner Family
DX: R10.2 Pelvic and perineal pain (principal); N95.0 Postmenopausal bleeding; R14.0 Abdominal distension (gaseous)

== ENCOUNTER → 2024-06-16 | Outpatient (CLI) | payer MEDICARE, OTHER ==
[~2024-06-16] MED LIST changes: -ROSU20TA61 PO; +ROSU20TA86 PO; -VITA500C19 PO; +VITA500C22 PO
[2024-06-16 08:59] LABS: HEMATOCRIT 41.9 % (36.0-47.0); MEAN CORPUSCULAR HEMOGLOBIN 31.3 pg (27.0-33.0); MEAN CORPUSCULAR HGB CONC 33.4 g/dl (32.0-36.5); MEAN CORPUSCULAR VOLUME 93.5 fl (80.0-96.0); PLATELET COUNT, AUTOMATED 223 10^3/uL (150-450); RED BLOOD COUNT 4.48 10^6/uL (4.00-5.40); WHITE BLOOD COUNT 7.9 10^3/uL (4.0-10.0)
[2024-06-16 09:23] LABS: ALBUMIN 4.1 G/DL (3.2-5.2); ALKALINE PHOSPHATASE 64 U/L (35-104); ALT/SGPT 22 U/L (7.0-40); AST/SGOT 23 U/L (<34); BILIRUBIN,TOTAL 0.8 MG/DL (0.3-1.2); BLOOD UREA NITROGEN 8 MG/DL (9-23); CALCIUM LEVEL 9.9 MG/DL (8.3-10.6); CARBON DIOXIDE LEVEL 30 MMOL/L (20-31); CHLORIDE LEVEL 99 MMOL/L (98-107); CHOLESTEROL LEVEL 149 MG/DL (<200); CHOLESTEROL RISK RATIO 2.19 (<5); CREATININE FOR GFR 0.91 MG/DL (0.55-1.30); GLOMERULAR FILTRATION RATE > 60.0 (>39); GLUCOSE, FASTING 81 MG/DL (74-106); HDL CHOLESTEROL 67.9 MG/DL (>40); LDL CHOLESTEROL 64.7 MG/DL (<100); MAGNESIUM LEVEL 1.9 MG/DL (1.8-2.4); NON-HDL-C 81.1 MG/DL; POTASSIUM SERUM 3.8 MMOL/L (3.5-5.1); SODIUM LEVEL 137 MMOL/L (136-145); TRIGLYCERIDES LEVEL 82 MG/DL (<150)
== END ==
LOC: M LAB 08:03
PROVIDERS: ATTEND Physician Assistant Medical
DX: R19.7 Diarrhea, unspecified (principal); R10.30 Lower abdominal pain, unspecified; I48.21 Permanent atrial fibrillation; E78.00 Pure hypercholesterolemia, unspecified; I10 Essential (primary) hypertension

== ENCOUNTER → 2024-06-16 | Outpatient (REF) | payer MEDICARE, OTHER | LOC: M LAB REF 14:20 | PROVIDERS: ATTEND Physician Assistant Medical | DX: R19.7 Diarrhea, unspecified (principal); R10.30 Lower abdominal pain, unspecified; I48.21 Permanent atrial fibrillation; I10 Essential (primary) hypertension; E78.00 Pure hypercholesterolemia, unspecified ==

== ENCOUNTER → 2024-06-18 | Outpatient (CLI) | payer MEDICARE, OTHER ==
[~2024-06-18] MED LIST changes: +ISOVUE-370 76% 100ML VIAL As Ordered ONE
== END ==
LOC: M RAD 07:34
PROVIDERS: ATTEND Physician Assistant Medical
DX: R19.7 Diarrhea, unspecified (principal)
CPT/HCPCS: 74177; Q9967

== ENCOUNTER → 2024-07-25 | Outpatient (CLI) | payer MEDICARE, OTHER ==
[~2024-07-25] MED LIST changes: -ISOVUE-370 76% 100ML VIAL As Ordered ONE
[2024-07-25 14:50] LABS: BASO % 0.4 % (0.0-1.0); EOS # 0.1 10^3/uL (0.0-0.5); EOS % 1.2 % (0.0-3.0); HEMATOCRIT 40.9 % (36.0-47.0); HEMOGLOBIN 13.8 g/dl (12.0-15.5); LYMPH # 1.5 10^3/uL (1.5-5.0); LYMPH % 15.4 % (24.0-44.0); MEAN CORPUSCULAR HEMOGLOBIN 31.5 pg (27.0-33.0); MEAN CORPUSCULAR HGB CONC 33.7 g/dl (32.0-36.5); MEAN CORPUSCULAR VOLUME 93.4 fl (80.0-96.0); MONO # 0.6 10^3/uL (0.0-0.8); MONO % 6.1 % (2.0-8.0); NEUTROPHILS # 7.3 10^3/uL (1.5-8.5); NEUTROPHILS % 76.4 % (36.0-66.0); PLATELET COUNT, AUTOMATED 225 10^3/uL (150-450); RED BLOOD COUNT 4.38 10^6/uL (4.00-5.40); WHITE BLOOD COUNT 9.6 10^3/uL (4.0-10.0)
[2024-07-25 15:16] LABS: ALBUMIN 4.4 G/DL (3.2-5.2); ALKALINE PHOSPHATASE 80 U/L (35-104); ALT/SGPT 21 U/L (7.0-40); AST/SGOT 27 U/L (<34); BLOOD UREA NITROGEN 12 MG/DL (9-23); CALCIUM LEVEL 10.4 MG/DL (8.3-10.6); CARBON DIOXIDE LEVEL 28 MMOL/L (20-31); CHLORIDE LEVEL 94 MMOL/L (98-107); CREATININE FOR GFR 0.81 MG/DL (0.55-1.30); GLOMERULAR FILTRATION RATE > 60.0 (>39); GLUCOSE, FASTING 99 MG/DL (74-106); POTASSIUM SERUM 4.2 MMOL/L (3.5-5.1); SODIUM LEVEL 133 MMOL/L (136-145); TOTAL PROTEIN 7.4 G/DL (5.7-8.2)
[2024-07-25 15:18] LABS: FOLATE > 24.0 NG/ML (>5.4); THYROID STIMULATING HORMONE 3.308 uIU/ML (0.55-4.78)
[2024-07-25 15:19] LABS: VITAMIN B12 LEVEL 791 PG/ML (211-911)
== END ==
LOC: M LAB 14:09
PROVIDERS: ATTEND Psychiatry & Neurology Neurology
DX: E53.8 Deficiency of other specified B group vitamins (principal); E03.9 Hypothyroidism, unspecified; R41.3 Other amnesia

== ENCOUNTER → 2024-08-15 | Outpatient (CLI) | payer MEDICARE, OTHER ==
[~2024-08-15] MED LIST changes: +SERT50TA29 PO; +VITA100054 PO
== END ==
LOC: M WHC 10:25
PROVIDERS: ATTEND Physician Assistant Medical
DX: R93.3 Abnormal findings on diagnostic imaging of other parts of digestive tract (principal); K76.0 Fatty (change of) liver, not elsewhere classified

== ENCOUNTER 2024-10-08 09:43 | Day surgery (SDC) | payer MEDICARE, OTHER ==
[~2024-10-08] VITALS: Ht 157.5 cm; Wt 65.9 kg
[2024-10-08 11:23] VITALS: TEMP 98.3
[2024-10-08 11:40] VITALS: BP 130/61; O2SAT 98
== END 2024-10-08 11:51 | disposition home or self-care (01) ==
LOC: M OPP 09:43
PROVIDERS: ATTEND Internal Medicine Gastroenterology
DX: K55.039 Acute (reversible) ischemia of large intestine, extent unspecified (principal); K57.30 Diverticulosis of large intestine without perforation or abscess without bleeding; K64.8 Other hemorrhoids; Z79.01 Long term (current) use of anticoagulants; I48.91 Unspecified atrial fibrillation; Z95.0 Presence of cardiac pacemaker; G47.30 Sleep apnea, unspecified; Z88.1 Allergy status to other antibiotic agents; Z88.8 Allergy status to other drugs, medicaments and biological substances; Z91.040 Latex allergy status; Z79.899 Other long term (current) drug therapy

== ENCOUNTER → 2024-10-24 | Outpatient (CLI) | payer MEDICARE, OTHER | LOC: M RAD 11:25 | PROVIDERS: ATTEND Psychiatry & Neurology Neurology | DX: I65.23 Occlusion and stenosis of bilateral carotid arteries (principal) ==

== ENCOUNTER → 2024-11-07 | Outpatient (CLI) | payer MEDICARE, OTHER ==
[2024-11-07 16:27] LABS: HEMATOCRIT 43.2 % (36.0-47.0); HEMOGLOBIN 14.3 g/dl (12.0-15.5); MEAN CORPUSCULAR HGB CONC 33.1 g/dl (32.0-36.5); MEAN CORPUSCULAR VOLUME 93.7 fl (80.0-96.0); PLATELET COUNT, AUTOMATED 242 10^3/uL (150-450); RED BLOOD COUNT 4.61 10^6/uL (4.00-5.40); WHITE BLOOD COUNT 6.1 10^3/uL (4.0-10.0)
[2024-11-07 16:45] LABS: BILIRUBIN,TOTAL 0.7 MG/DL (0.3-1.2); CALCIUM LEVEL 9.5 MG/DL (8.3-10.6); CREATININE FOR GFR 0.85 MG/DL (0.55-1.30); GLOMERULAR FILTRATION RATE 71.4 (>39); POTASSIUM SERUM 3.8 MMOL/L (3.5-5.1)
== END ==
LOC: M LAB 15:35
PROVIDERS: ATTEND Physician Assistant Medical
DX: K76.0 Fatty (change of) liver, not elsewhere classified (principal)

== ENCOUNTER → 2024-11-07 | Outpatient (CLI) | payer MEDICARE, OTHER ==
[~2024-11-07] MED LIST changes: +ISOVUE-370 76% 100ML VIAL As Ordered ONE
[2024-11-07 16:28] LABS: BASO # 0.1 10^3/uL (0.0-0.2); BASO % 0.8 % (0.0-1.0); EOS # 0.1 10^3/uL (0.0-0.5); EOS % 1.7 % (0.0-3.0); HEMATOCRIT 42.7 % (36.0-47.0); HEMOGLOBIN 14.1 g/dl (12.0-15.5); LYMPH # 1.4 10^3/uL (1.5-5.0); LYMPH % 22.4 % (24.0-44.0); MEAN CORPUSCULAR HEMOGLOBIN 31.1 pg (27.0-33.0); MEAN CORPUSCULAR VOLUME 94.1 fl (80.0-96.0); MONO # 0.7 10^3/uL (0.0-0.8); MONO % 10.9 % (2.0-8.0); NEUTROPHILS # 4.1 10^3/uL (1.5-8.5); NEUTROPHILS % 63.7 % (36.0-66.0); PLATELET COUNT, AUTOMATED 232 10^3/uL (150-450); RED BLOOD COUNT 4.54 10^6/uL (4.00-5.40); WHITE BLOOD COUNT 6.4 10^3/uL (4.0-10.0)
[2024-11-07 16:36] LABS: ERYTHROCYTE SEDIMENTATION RATE 14 mm/hr (0-30)
[2024-11-07 16:47] LABS: C REACTIVE PROTEIN QUANTITATIV 0.73 MG/DL (<1.0)
[2024-11-07 16:48] LABS: CALCIUM LEVEL 9.4 MG/DL (8.3-10.6); CREATININE FOR GFR 0.85 MG/DL (0.55-1.30); GLOMERULAR FILTRATION RATE 71.4 (>39); POTASSIUM SERUM 3.8 MMOL/L (3.5-5.1); THYROID STIMULATING HORMONE 3.31 uIU/ML (0.55-4.78)
[2024-11-07 16:49] LABS: FREE T4 1.29 NG/DL (0.89-1.76); TOTAL 25(OH) VITAMIN D 51.2 NG/ML (20.0-100.0)
== END ==
LOC: M LAB 15:26
PROVIDERS: ATTEND Nurse Practitioner Adult Health
DX: R10.32 Left lower quadrant pain (principal); E55.9 Vitamin D deficiency, unspecified; I10 Essential (primary) hypertension; G47.33 Obstructive sleep apnea (adult) (pediatric); Z79.899 Other long term (current) drug therapy; K76.0 Fatty (change of) liver, not elsewhere classified
CPT/HCPCS: 36415; 74177; 80053; 82150; 82306; 83036; 83690; 84439; 84443; 85025; 85027; 85652; 86140; Q9967

== ENCOUNTER → 2024-12-03 | Outpatient (CLI) | payer MEDICARE, OTHER ==
[~2024-12-03] MED LIST changes: +D31000CA5 PO; -ISOVUE-370 76% 100ML VIAL As Ordered ONE; -VITA100054 PO
== END ==
LOC: M RAD 07:02
PROVIDERS: ATTEND Nurse Practitioner Adult Health
DX: K74.60 Unspecified cirrhosis of liver (principal)

== ENCOUNTER → 2025-04-29 | Outpatient (CLI) | payer MEDICARE, OTHER | LOC: M PLAIMG 08:31 | PROVIDERS: ATTEND Nurse Practitioner Adult Health | DX: R41.3 Other amnesia (principal); R90.82 White matter disease, unspecified ==

== ENCOUNTER → 2025-05-30 | Outpatient (CLI) | payer MEDICARE, OTHER | LOC: M PLAIMG 07:49 | PROVIDERS: ATTEND Physician Assistant | DX: I36.1 Nonrheumatic tricuspid (valve) insufficiency (principal) ==